=== PATIENT | male | born 1975 | race Caucasian/White ===

== ENCOUNTER 2016-11-19 22:40 | Observation (INO) ==
[2016-11-20] MEDS ORDERED: NICOTINE 21 MG/24 HR PATCH TRANSDERM PRN (01:08)
[2016-11-20] MEDS ORDERED: ACETAMINOPHEN 325 MG TABLET PO PRN (01:08)
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
[2016-11-20 01:27] LABS: Basophils # 0.1 10*3/uL (0.0-0.2); Basophils % 0.3 % (0.0-0.8); Eosinophils # 0.1 10*3/uL (0.0-0.87); Eosinophils % 0.3 % (0.00-10.9); Hematocrit 40.8 VOL% (42.0-52.0); Hemoglobin 14.2 GM/DL (14.0-18.0); Immature Granulocytes % 1.2 %; Immature Granulocytes Absolute 0.19 #; Lymphocytes # 2.3 10*3/uL (1.4-4.0); Lymphocytes % 14.5 % (21.2-54.2); Mean Corpuscular HGB Conc 34.8 GM/DL (32-36); Mean Corpuscular Hemoglobin 33 PG (27-34); Mean Platelet Volume 9.2 FL (9.6-12.0); Monocytes # 0.7 10*3/uL (0.11-0.8); Monocytes % 4.7 % (1.7-12.7); Neutrophils # 12.2 10*3/uL (1.4-7.4); Platelet Count 390 T/CUMM (130-400); Red Blood Count 4.25 MC/CUMM (3.8-5.5); Red Cell Distribution Width 16.4 % (9.3-17.3); White Blood Count 15.5 T/CUMM (4-12)
[2016-11-20 02:03] LABS: Calcium 8.5 MG/DL (8.5-10.1); Osmolality,Calculated 277.4 MOS/KG (273-304); Potassium 4.1 MMOL/L (3.5-5.1)
--- NOTE | 2016-11-20 06:10 | XRay Report ---
Exam: XR abdomen 1V Date: 11/20/2016 1:11 AM Indication: Abdominal pain Comparison: 05/04/2016 Technical: Supine image post contrast CT Findings: Contrast is present in the bladder as well as contrast in the collecting system of the kidneys. The ureters are faintly demonstrated on the right. Surgical clips present right lower quadrant. The lung bases are not included. The liver shadow is partially seen the spleen is obscured. Bony structures are intact. Impression: Prior surgical changes right lower quadrant 2. Mild constipation PROCEDURE INTERPRETED AT [facility] DEPARTMENT OF RADIOLOGY Final Report Signed by: Dr. Gerardo Gallardo
--- NOTE | 2016-11-20 06:42 | CT Report ---
Exam:CT chest wo con Date:11/20/2016 1:41 AM Indication: Chest pain Comparison: Routine chest radiograph 05/04/2016 Technical: Images were obtained from the thoracic inlet through the lung bases without intravenous contrast. Axial sagittal and coronal imaging was available for review. Dose reduction was performed with decreasing kv and mA and automated exposure Total DLP: 337.9 mGy*cm Findings: Study was initially reviewed by [facility]. The thyroid gland, trachea and esophagus are unremarkable. The anterior middle and posterior mediastinum are a few small nodes are present in the lateral aortic kalpana chain and carinal region without bulky adenopathy present. No supraclavicular are significant axillary nodes present. The heart and pulmonary artery are unremarkable. Aorta is unremarkable without contrast The lungs are clear without infiltrates or effusions. The bony structures are unremarkable. Impression: 1. No acute abnormality Exam: CT chest abdomen wo con Date: 11/20/2016 1:41 AM Comparison: None Indication: Abdominal pain Total DLP: As above mGy*cm Technical: Note is made contrast present in the kidneys from previous CT scan from outside institution no films or report are available. Images were obtained from the lung bases to the iliac crest without intravenous contrast with axial sagittal coronal imaging available for review. Dose reduction was performed with decreasing kv and mA and automated exposure Findings: Study was initially reviewed by [facility]. Liver and Spleen: Liver is unremarkable. There is small area of residual splenic tissue with prior splenectomy. There is a 4 cm area of tissue in the left upper abdomen Gallbladder and Pancreas: The gallbladder is not visualized suggesting prior cholecystectomy. No ductal dilatation. The pancreas is unremarkable. Adrenals: Unremarkable Kidneys: Contrast is present in the collecting system of the kidneys with excretion with no focal abnormalities. Ureters are nondilated or distended Stomach: Incomplete distended with air-fluid and debris Retroperitoneum: No enlarged lymph nodes. Aorta and IVC: No obvious aneurysm aorta vessels and IVC without contrast are otherwise unremarkable Bowel and Mesentery: Bowel in the upper abdomen is unremarkable. Surgical clips suggest prior appendectomy right lower quadrant Osseous structures: No suspicious appearing osseous abnormalities noted. Impression: 1. Previous appendectomy suspected. No acute intra-abdominal findings noted 2. Previous splenectomy with small residual splenic tissue present. The pelvis was not evaluated on today's study PROCEDURE INTERPRETED AT [facility] DEPARTMENT OF RADIOLOGY Final Report Signed by: Dr. Gerardo Gallardo
[2016-11-20 06:57] LABS: Basophils # 0.1 10*3/uL (0.0-0.2); Basophils % 0.5 % (0.0-0.8); Eosinophils # 0.1 10*3/uL (0.0-0.87); Eosinophils % 0.6 % (0.00-10.9); Hematocrit 41.3 VOL% (42.0-52.0); Hemoglobin 14.6 GM/DL (14.0-18.0); Immature Granulocytes % 0.8 %; Lymphocytes # 2.6 10*3/uL (1.4-4.0); Lymphocytes % 21.6 % (21.2-54.2); Mean Corpuscular HGB Conc 35.4 GM/DL (32-36); Mean Corpuscular Hemoglobin 34 PG (27-34); Mean Corpuscular Volume 95.4 FL (87-102); Mean Platelet Volume 9.2 FL (9.6-12.0); Monocytes # 0.7 10*3/uL (0.11-0.8); Monocytes % 5.5 % (1.7-12.7); Neutrophils # 8.6 10*3/uL (1.4-7.4); Platelet Count 392 T/CUMM (130-400); Red Blood Count 4.33 MC/CUMM (3.8-5.5); Red Cell Distribution Width 16.2 % (9.3-17.3); White Blood Count 12.1 T/CUMM (4-12)
[2016-11-20 07:36] LABS: Risk Ratio 2.01; VLDL CHOLESTEROL 9.2 MG/DL
[2016-11-20] MEDS ORDERED: RANITIDINE 75 MG PO SCH (09:00)
[2016-11-20] MEDS ORDERED: RANITIDINE 150 MG TABLET PO SCH (09:00)
[2016-11-20] MEDS: SUCRALFATE 1 GM TABLET PO SCH ×2 (09:59→16:31)
[2016-11-20] MEDS: LISINOPRIL 10 MG TABLET PO SCH (09:59)
[2016-11-20] MEDS: FAMOTIDINE 20 MG TABLET PO SCH ×2 (09:59→21:09)
[2016-11-20] MEDS: PANTOPRAZOLE 40 MG TABLET PO SCH (10:00)
[2016-11-20] MEDS: ONDANSETRON 4 MG/2 ML VIAL IV PRN ×3 (10:58→21:15)
[2016-11-20] MEDS: HYDROmorphone 2 MG/1 ML VIAL IV PRN ×3 (11:23→21:10)
[2016-11-20] MEDS: DEXTROSE 5% NACL 0.45% 1,000 ML IV SCH ×2 (11:23→19:45)
--- NOTE | 2016-11-20 11:35 | EKG Report ---
Stationary ECG Study [facility] Test Date: 11/20/2016 11:35:11 AM Pat Name: CECILIA MATA Department: Room: 543 Gender: M Dry Cleaner Helper: SARTHAK : 1975 Requested by: José Desir Order Number: [id number] Reading MD: LETY AGUERO Intervals [place] Rate: 71 P: 58 CA: 164 QRS: 89 QRSD: 98 T: 33 QT: 407 QTc: 430 Interpretive Statements SINUS RHYTHM Electronically Signed On 11-20-16 12:21:17 CDT by LETY AGUERO [email or web address]
[2016-11-20 11:50] LABS: Barbiturates Screen,Urine Negative (Negative); Benzodiazepines Screen,Urine Positive (Negative); Cannabinoid Screen,Urine Negative (Negative); Opiate Screen,Urine Positive (Negative); Phencyclidine Screen,Urine Negative (Negative)
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
[2016-11-20 15:07] LABS: Albumin 3.5 G/DL (3.4-5.0); Bilirubin,Direct 0.2 MG/DL (0.0-0.20); Bilirubin,Indirect 0.3 MG/DL (0.0-1.0); Bilirubin,Total 0.5 MG/DL (0.2-1.0); Total Protein 6.5 G/DL (6.4-8.3)
--- NOTE | 2016-11-20 15:25 | CT Report ---
Referring physician: Cherie Davis MD EXAM: CT abdomen and pelvis with and without contrast DATE: 11/20/2016 COMPARISON: 11/20/2016 REASON: Possible small bowel obstruction TECHNIQUE: Axial images of the abdomen and pelvis were obtained with and without the use of 100 cc of Omnipaque 350 IV contrast. Oral contrast was also administered. Coronal and sagittal reformatted images were also provided. Total DLP was 992.00 mGy*cm. FINDINGS: Minimal atelectasis at the visualized lung bases. The liver is normal in size with fatty infiltration. No masses or dilated ducts patient with prior cholecystectomy. Prior splenectomy with residual splenic tissue measuring 40 mm. The pancreas and adrenal glands are stable in appearance. Retained contrast in the urinary tract with multiple less than 5 mm bilateral renal calculi. Limited evaluation for ureteral calculus with residual contrast in the ureters and urinary bladder. Probable small phleboliths adjacent to the nondilated ureters. The abdominal aorta is normal in size with no adjacent adenopathy. No significant dilatation of the small bowel. The oral contrast reaches the cecum. No evidence of diverticulitis, appendicitis, free air, or free fluid. Small fat-containing midline ventral hernia and left periumbilical hernia. Asymmetric fluid and soft tissue density in the right inguinal canal involving a 30 mm area. The prostate measures 31 mm in diameter and indents the base of the urinary bladder. The urinary bladder is somewhat decompressed. No acute osseous findings are noted. IMPRESSION: Atelectasis at the lung bases. Fatty infiltration of the liver with prior cholecystectomy. Prior splenectomy with residual splenic tissue. Numerous bilateral renal calculi identified with no definite obstructing calculus. Limited evaluation of the urinary tract due to retained contrast from prior CT. Fat-containing midline ventral and left umbilical hernia. Asymmetric density in the right inguinal canal which may be related to undescended testicle. Scrotal ultrasound recommended for further evaluation. No evidence of definite small bowel obstruction with minimal oral contrast reaching the colon. Increased fecal material consistent with constipation. Follow-up x-ray may be helpful to document passage of the barium into the colon. Decompressed urinary bladder which makes it difficult to exclude minimal nonspecific bladder wall thickening. The CT exam was performed using one or more of the following dose reduction techniques: Automated exposure control and adjustment of the mA and/or kV according to patient size. PROCEDURE INTERPRETED AT [facility] DEPARTMENT OF RADIOLOGY Final Report Signed by: Dr. Pina Stephens
[2016-11-21] MEDS: DEXTROSE 5% NACL 0.45% 1,000 ML IV SCH ×3 (03:14→20:37)
[2016-11-21] MEDS: ONDANSETRON 4 MG/2 ML VIAL IV PRN (03:14)
[2016-11-21] MEDS: HYDROmorphone 2 MG/1 ML VIAL IV PRN ×4 (03:14→18:29)
[2016-11-21 07:33] LABS: Basophils % 0.5 % (0.0-0.8); Eosinophils # 0.1 10*3/uL (0.0-0.87); Eosinophils % 1.3 % (0.00-10.9); Hematocrit 39.7 VOL% (42.0-52.0); Hemoglobin 13.9 GM/DL (14.0-18.0); Immature Granulocytes % 0.4 %; Immature Granulocytes Absolute 0.03 #; Lymphocytes # 3.1 10*3/uL (1.4-4.0); Lymphocytes % 35.7 % (21.2-54.2); Mean Corpuscular Hemoglobin 34 PG (27-34); Mean Corpuscular Volume 96.6 FL (87-102); Mean Platelet Volume 10.1 FL (9.6-12.0); Monocytes # 0.7 10*3/uL (0.11-0.8); Monocytes % 7.9 % (1.7-12.7); Neutrophils # 4.6 10*3/uL (1.4-7.4); Neutrophils % 54.2 % (38.7-73.9); Platelet Count 387 T/CUMM (130-400); Red Blood Count 4.11 MC/CUMM (3.8-5.5); Red Cell Distribution Width 16.3 % (9.3-17.3); White Blood Count 8.6 T/CUMM (4-12)
[2016-11-21 07:43] LABS: Calcium 8.1 MG/DL (8.5-10.1); Osmolality,Calculated 274.5 MOS/KG (273-304)
[2016-11-21] MEDS: FAMOTIDINE 20 MG TABLET PO SCH ×2 (09:39→20:39)
[2016-11-21] MEDS: LISINOPRIL 10 MG TABLET PO SCH (09:40)
[2016-11-21] MEDS: SUCRALFATE 1 GM TABLET PO SCH ×2 (09:40→16:26)
[2016-11-21] MEDS: PANTOPRAZOLE 40 MG TABLET PO SCH (09:40)
--- NOTE | 2016-11-21 09:46 | General Surgery Progress Note ---
Assessment and Plan - Time spent with patient Time spent with patient: Less than 30 minutes (1) Abdominal pain Status: Acute Assessment and plan: Impression: Abdominal pain of unknown etiology. CT scans failed to reveal any evidence of obstruction. He does have a certain degree of chronic constipation on the scans at this time. He generally seems better and WBC is down today to 8000. At this point I do not see anything surgical at this time and will just continue to observe. Current Visit: No Qualifiers: Abdominal location: epigastric Qualified Code(s): R10.13 - Epigastric pain Subjective Patient reports: Present: no new complaints, feels better, tolerating liquids well, no bowel movement, afebrile, other Exam - Constitutional Vitals: Period Temp Pulse Resp BP Sys/Abel Pulse Ox Last 24 Hr 97.6 F-97.9 F 49-62 18-20 115-154/78-98 95-97 General appearance: mild distress - Head Head exam: Present: normal inspection - ENT ENT exam: Present: normal exam - Neck Neck exam: Present: normal inspection - Respiratory Respiratory exam: Present: clear to auscultation bilaterally - Cardiovascular Cardiovascular exam: Present: RRR - GI/Abdominal GI/Abdominal exam: Present: hypoactive bowel sounds, tenderness (Mild tenderness still), soft. Absent: guarding - Extremities Exam Extremities exam: Present: normal inspection - Back Exam Back exam: Present: normal inspection - Neurological Exam Neurological exam: Present: alert, oriented X3, CN II-XII intact - Skin Skin exam: Present: normal color, warm, dry Results - Labs CBC & BMP: 11/21/16 05:01 11/21/16 05:01 Lab Results: I have reviewed the past 24 hour labs - Diagnostic Findings Procedure: CT Abdomen and Pelvis: other (No sign of any obstructive process.) Quality Measures - Stroke Symptom Onset Unknown: No
[2016-11-21] MEDS ORDERED: MINERAL OIL ENEMA 133 ML BOTTLE RECTAL ONE (10:30)
[2016-11-21] MEDS: ALUMINUM/MAGNES/SIMETH MAX STR 30 ML UDCUP PO SCH ×3 (10:41→21:20)
--- NOTE | 2016-11-21 12:51 | Ultrasound Report ---
History: Undescended right testicle Date: 11/21/2016 Study: Scrotal ultrasound with duplex Comparison exam: No previous similar study for comparison Real-time ultrasound images are captured and archived. The right testicle measures 26 x 45 x 19 mm; the left testicle measures 28 x 41 x 18 mm. There is no intrinsic testicular mass. There is symmetric color Doppler flow to either testicle without evidence of torsion. The head of the right epididymis measures 9 mm; the left measures 8 mm. There are some scrotal varices on the left. There is minimal bilateral hydrocele. Impression: No evidence of testicular torsion. No intrinsic testicular mass. Both testicles are distended. There are some scrotal varices on the left PROCEDURE INTERPRETED AT [facility] DEPARTMENT OF RADIOLOGY Final Report Signed by: Dr. Anitra Miranda
[2016-11-21] MEDS ORDERED: PROMETHAZINE INJ 25 MG in SODIUM CHLORIDE 0.9% 50 ML IV ONE (13:30)
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
[2016-11-21] MEDS ORDERED: diphenhydrAMINE 50 MG/1 ML VIAL IV ONE (16:29)
[2016-11-21] MEDS ORDERED: THIAMINE INJ 100 MG, FOLIC ACID INJ 1 MG, MULTIVITAMIN INJ 10 ML in DEXTROSE 5% NACL 0.... IV SCH (16:30)
[2016-11-21] MEDS: chlordiazePOXIDE 25 MG CAPSULE PO SCH ×2 (17:26→20:39)
[2016-11-21] MEDS: NICOTINE 21 MG/24 HR PATCH TRANSDERM SCH (17:30)
--- NOTE | 2016-11-21 17:49 | Hospitalist Progress Note ---
Assessment and Plan - Time spent with patient Time spent with patient: Less than 30 minutes (1) EtOH dependence Status: Acute Assessment and plan: Ativan as needed for seizure protocol, Librium and clonidine for prophylaxis of withdrawal symptoms Current Visit: Yes (2) Abdominal pain Status: Acute Assessment and plan: GI following, appreciate their assistance, will check stool for occult blood, continue PPI therapy Current Visit: No Qualifiers: Abdominal location: epigastric Qualified Code(s): R10.13 - Epigastric pain (3) Nausea Status: Acute Assessment and plan: Patient states he had a couple episodes of nausea with minimal vomiting, Phenergan 25 mg IV 1 dose Current Visit: Yes Hospitalist: Subjective Interval history: Patient resting in bed on his side due to just receiving fleets enema. He states he continues to have some abdominal discomfort and states he had a loose bowel movement just before receiving the enema. CT of abdomen with contrast only showed some constipation. GI is following and has also ordered additional labs. Patient's drug screen was positive for opioids and benzos. Although he denies chronic opioid use this could be one possibility for his constipation. Testicular ultrasound shows both testicles in place with only mild distention and some scrotal varices on the left. Before completion of progress note nursing staff called and the patient admitted to more EtOH use than originally reported. Stating he drinks about a sixpack per night. Patient denies headache , chest pain, shortness of breath or pain/swelling in lower extremities. Exam - Constitutional Vitals: Period Temp Pulse Resp BP Sys/Abel Pulse Ox Last 24 Hr 97.5 F-98 F 49-79 18-20 115-160/78-102 94-97 General appearance: normal weight, mild distress - Respiratory Respiratory exam: Present: clear to auscultation bilaterally - Cardiovascular Cardiovascular exam: Present: regular rate and rhythm - GI/Abdominal GI/Abdominal exam: Present: normal bowel sounds, tenderness - Neurological Exam Neurological exam: Present: alert, oriented X3 - Psychiatric Psychiatric exam: Present: normal affect, normal mood Results - Labs CBC & BMP: 11/21/16 05:01 11/21/16 05:01 Lab Results: I have reviewed the past 24 hour labs Quality Measures - Stroke Symptom Onset Unknown: No
[2016-11-21] MEDS: LORazepam 2 MG/1 ML VIAL IV SCH (18:45)
[2016-11-22] MEDS: HYDROmorphone 2 MG/1 ML VIAL IV PRN (01:11)
[2016-11-22] MEDS: LORazepam 2 MG/1 ML VIAL IV SCH ×3 (01:11→12:11)
[2016-11-22] MEDS: ALUMINUM/MAGNES/SIMETH MAX STR 30 ML UDCUP PO SCH ×2 (05:24→10:07)
[2016-11-22] MEDS: SUCRALFATE 1 GM TABLET PO SCH (07:08)
[2016-11-22] MEDS: chlordiazePOXIDE 25 MG CAPSULE PO SCH ×2 (09:08→15:26)
[2016-11-22] MEDS: LISINOPRIL 10 MG TABLET PO SCH (09:09)
[2016-11-22] MEDS: FAMOTIDINE 20 MG TABLET PO SCH (09:09)
[2016-11-22] MEDS: PANTOPRAZOLE 40 MG TABLET PO SCH (09:09)
[2016-11-22] MEDS: NICOTINE 21 MG/24 HR PATCH TRANSDERM SCH (09:10)
--- NOTE | 2016-11-22 10:04 | General Surgery Progress Note ---
Assessment and Plan - Time spent with patient Time spent with patient: Less than 30 minutes (1) Abdominal pain Status: Acute Assessment and plan: Impression: Abdominal pain of unknown etiology. CT scans failed to reveal any evidence of obstruction. He does have a certain degree of chronic constipation on the scans at this time. He generally seems better and WBC is down today to 8000. At this point I do not see anything surgical at this time and will just continue to observe. 11/22/2016 Patient is difficult to read and get a good feel for what is happening with him. His tray is cleaned out with the liquids that he has been taking. He states he had a bowel movement yesterday but none so far this morning. Abdomen is unchanged is soft and bowel sounds are hypoactive at this point. He still always seems to be a little tender around his old incision site but I just really cannot see that there is a big push for any surgery on this area. We will try to advance his diet and continue observation at this time and see basically what he is going to do. Before considering any surgery on left eye little more time to see what his symptoms basically do over time. He clearly has no obstructive process going on at this time. Current Visit: No Qualifiers: Abdominal location: epigastric Qualified Code(s): R10.13 - Epigastric pain Subjective Patient reports: Present: no new complaints, pain is less, tolerating liquids well, no bowel movement (This morning), afebrile Exam - Constitutional Vitals: Period Temp Pulse Resp BP Sys/Abel Pulse Ox Last 24 Hr 97.5 F-99.5 F 48-79 18-20 113-160/63-102 92-96 General appearance: mild distress - Head Head exam: Present: normal inspection - ENT ENT exam: Present: normal exam - Neck Neck exam: Present: normal inspection - Respiratory Respiratory exam: Present: clear to auscultation bilaterally, rales - Cardiovascular Cardiovascular exam: Present: RRR - GI/Abdominal GI/Abdominal exam: Present: hypoactive bowel sounds, tenderness (Continues to seem to have a little discomfort along the incisional line but otherwise unremarkable), soft - Extremities Exam Extremities exam: Present: normal inspection - Neurological Exam Neurological exam: Present: alert, oriented X3, CN II-XII intact - Skin Skin exam: Present: normal color, warm, dry Results - Labs CBC & BMP: 11/21/16 05:01 11/21/16 05:01 Lab Results: I have reviewed the past 24 hour labs Quality Measures - Stroke Symptom Onset Unknown: No
--- NOTE | 2016-11-22 10:58 | Discharge Summary ---
<Mila Desai - Last Filed: 11/22/16 11:34> Hospital Course - Hospital Course Hospital Course: 41 yo male with a history aortic repair in the remote past presents with abdominal pain. Dr. Campbell and Dr. Miranda consulted. Patient in denial about his alcohol use. Labs were obtained: WBC 15.5; AST 124; ALT 149; Urine drug screen Postive for opiates and benzodiazepines; other lab results were within normal lab values; Abdominal xray: showed Mild Constipation and prior surgical changes right lower quadrant.; Chest/Abdomen CT: constipation with previous splenectomy with reducible left umbilical hernia. Scrotal US negative. No etiology for abdominal pain, drug seeking. Discharge home to follow up with Dr. Campbell in one week. Needs rehab for alcoholism. - Time spent with patient Time with patient DS: Less than 30 minutes Diagnosis - Discharge Diagnosis (1) Constipation Status: Acute (2) Abdominal pain Status: Acute Specialty Discharge - Follow Up or Referrals Follow up with: José Campbell MD [Physician] - 1 Week Discharge Plan - Discharge Data Disposition: Disch To Home/Self Care - Discharge Medications New Folic Acid Tab 1 mg PO DAILY #30 tablet Thiamine Tab [Vitamin B1 Tab] 100 mg PO DAILY #30 tablet Continue HYDROcodone/ACETAMIN 7.5-325 [[place] 7.5-325] 1 tablet PO Q4H PRN #30 tablet PRN Reason: Pain Moderate (4-7) Lisinopril 10 mg PO DAILY #30 tablet - Follow Up or Referral Follow Up: José Campbell MD [Physician] - 1 Week - Forms/Instructions Exam - Constitutional Vitals: Period Temp Pulse Resp BP Sys/Abel Pulse Ox Last 24 Hr 97.5 F-99.5 F 48-79 18-20 113-160/63-102 92-96 Discharge Results Procedures and tests throughout hospitalization: Pending Orders 11/21/16 13:45 Occult Blood, Stool Routine 11/23/16 04:00 Basic Metabolic Panel w/Mg IN AM Comp Blood Count Auto Diff IN AM DS: Provider Date of admission: 11/20/16 00:15 Primary care physician: . No PCP Attending physician on admission: Yinka Pineda MD Consults: 11/20/16 01:35 Consult to Physician [CONS] Routine Comment: abdominal pain, poss hernia, pt known to you Consulting Provider: José Campbell Person Notified: REHANGER ISMAEL BOTELLO Date Notified: 11/20/16 Time Notified: 09:04 Consult Notification Comment: TALK TO HANNA @ DR. YANG OFFICE SHE STATED DR. CAMPBELL WILL SEE THIS PATIENT 11/20/16 01:36 Consult to Physician [CONS] Routine Comment: abdominal pain Consulting Provider: Gerardo Miranda Person Notified: RHIANNON Date Notified: 11/20/16 Time Notified: 10:00 Discharging clinician: Mila Desai NP <Re Lord - Last Filed: 11/22/16 13:06> Hospital Course - Time spent with patient Time with patient DS: Less than 30 minutes (25 min) Discharge Plan - Discharge Data Condition at Discharge: Stable Discharge Diet: other (soft diet) Activity: resume usual activities as tolerated Hygiene: no restrictions Weight Bearing at Discharge: full weight bearing Driving: not until seen by doctor - Forms/Instructions Additional Discharge Instructions: referral to [place] for help with alcohol and drug abuse Exam - Constitutional General appearance: normal weight, no acute distress - Respiratory Respiratory exam: Present: clear to auscultation bilaterally. Absent: rhonchi, wheezes - Cardiovascular Cardiovascular exam: Present: regular rate and rhythm. Absent: systolic murmur - GI/Abdominal GI/Abdominal exam: Present: normal bowel sounds, soft. Absent: tenderness - Extremities Exam Extremities exam: Present: normal inspection, normal capillary refill
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
[2016-11-22 12:32] VITALS: BP 132/58
[2016-11-22] MEDS: DEXTROSE 5% NACL 0.45% 1,000 ML IV SCH (15:25)
[2016-11-22] MEDS ORDERED: DOCUSATE SODIUM 100 MG CAPSULE PO SCH (21:00)
== END 2016-11-22 14:23 | disposition home or self-care (01) ==
LOC: SUATTDRO 11-20 00:15 → N.5E 11-20 00:15 → INTOOBSV 11-20 00:15
PROVIDERS: ADMIT Family Medicine; ATTEND Internal Medicine

== ENCOUNTER 2017-03-12 11:55 | Observation (INO) ==
[2017-03-12] MEDS ORDERED: ASPIRIN 325 MG TABLET PO STA (13:46)
[2017-03-12] MEDS ORDERED: ALUM/MAG/SIMETH/LIDO VISC 1:1 30 ML BOTTLE PO STA (13:46)
[2017-03-12 13:58] LABS: Basophils # 0.1 10*3/uL (0.0-0.2); Basophils % 0.7 % (0.0-0.8); Eosinophils # 0.2 10*3/uL (0.0-0.87); Eosinophils % 1.6 % (0.00-10.9); Hematocrit 47.6 VOL% (42.0-52.0); Hemoglobin 16.9 GM/DL (14.0-18.0); Immature Granulocytes % 0.8 %; Immature Granulocytes Absolute 0.09 #; Lymphocytes # 3.5 10*3/uL (1.4-4.0); Lymphocytes % 29.3 % (21.2-54.2); Mean Corpuscular HGB Conc 35.5 GM/DL (32-36); Mean Corpuscular Hemoglobin 34 PG (27-34); Mean Corpuscular Volume 94.8 FL (87-102); Mean Platelet Volume 9.7 FL (9.6-12.0); Monocytes # 0.9 10*3/uL (0.11-0.8); Monocytes % 7.5 % (1.7-12.7); Neutrophils # 7.2 10*3/uL (1.4-7.4); Neutrophils % 60.1 % (38.7-73.9); Platelet Count 405 T/CUMM (130-400); Red Blood Count 5.02 MC/CUMM (3.8-5.5); Red Cell Distribution Width 14.2 % (9.3-17.3)
[2017-03-12] MEDS ORDERED: ALUM/MAG/SIMETH/LIDO VISC 1:1 30 ML BOTTLE PO ONE (14:08)
[2017-03-12] MEDS ORDERED: ASPIRIN 325 MG TABLET ONE (14:08)
[2017-03-12 14:28] LABS: Alanine Aminotransferase 51 U/L (16-61); Albumin 4.2 G/DL (3.4-5.0); Alkaline Phosphatase 77 U/L (45-117); Aspartate Amino Transferase 25 U/L (0-37); Bilirubin,Total < 0.39 MG/DL (0.2-1.0); Blood Urea Nitrogen 9 MG/DL (7-18); Calcium 9.3 MG/DL (8.5-10.1); Glucose 92 MG/DL (74-106); Magnesium 2.2 MG/DL (1.8-2.4); Osmolality,Calculated 279.3 MOS/KG (273-304); Potassium 4.6 MMOL/L (3.5-5.1); Sodium 141 MMOL/L (136-145); Total Protein 7.9 G/DL (6.4-8.3)
[2017-03-12 16:57] LABS: Apearance,Urine CLEAR (Clear); Bilirubin,Urine Negative (Negative); Blood, Urine Negative (Negative); Glucose,Urine (UA) Negative (Negative); Ketones,Urine Negative (Negative); Nitrite,Urine Negative (Negative); Protein,Urine Negative; RBC,Urine 1 /HPF (0-4); Urine Color Straw (Yellow); Urine Specific Gravity 1.059 (1.001-1.035); Urine Urobilinogen < 2.0 EU/DL (0.2-1.0); WBC,Urine <1 /HPF (0-6)
[2017-03-12 17:06] LABS: Barbiturates Screen,Urine Negative (Negative); Benzodiazepines Screen,Urine Negative (Negative); Cannabinoid Screen,Urine Positive (Negative); Opiate Screen,Urine Negative (Negative); Phencyclidine Screen,Urine Negative (Negative)
[2017-03-12] MEDS ORDERED: ACETAMINOPHEN 325 MG TABLET PO PRN (17:20)
[2017-03-12] MEDS ORDERED: ONDANSETRON 4 MG/2 ML VIAL IV PRN (17:20)
[2017-03-12] MEDS ORDERED: ENOXAPARIN 40 MG/0.4 ML SYRINGE SUBCUT SCH (17:30)
[2017-03-12] MEDS: SODIUM CHLORIDE 0.9% 1,000 ML IV SCH (17:45)
[2017-03-12] MEDS ORDERED: CLORAZEPATE 3.75 MG TABLET PO PRN (20:48)
[2017-03-12] MEDS ORDERED: PANTOPRAZOLE 40 MG VIAL IV ONE (22:20)
[2017-03-12] MEDS: diphenhydrAMINE 50 MG/1 ML VIAL IV PRN (22:34)
[2017-03-13 04:44] LABS: Basophils # 0.1 10*3/uL (0.0-0.2); Eosinophils # 0.3 10*3/uL (0.0-0.87); Eosinophils % 3.9 % (0.00-10.9); Hematocrit 41.3 VOL% (42.0-52.0); Hemoglobin 14.6 GM/DL (14.0-18.0); Immature Granulocytes % 0.7 %; Immature Granulocytes Absolute 0.06 #; Lymphocytes # 3.5 10*3/uL (1.4-4.0); Lymphocytes % 40.7 % (21.2-54.2); Mean Corpuscular HGB Conc 35.4 GM/DL (32-36); Mean Corpuscular Hemoglobin 33 PG (27-34); Mean Corpuscular Volume 94.5 FL (87-102); Mean Platelet Volume 10.1 FL (9.6-12.0); Monocytes # 0.6 10*3/uL (0.11-0.8); Monocytes % 7.3 % (1.7-12.7); Neutrophils % 46.4 % (38.7-73.9); Platelet Count 372 T/CUMM (130-400); Red Blood Count 4.37 MC/CUMM (3.8-5.5); Red Cell Distribution Width 14.3 % (9.3-17.3); White Blood Count 8.6 T/CUMM (4-12)
[2017-03-13 05:24] LABS: Albumin 3.2 G/DL (3.4-5.0); Bilirubin,Total 0.5 MG/DL (0.2-1.0); Calcium 8.7 MG/DL (8.5-10.1); Magnesium 2.2 MG/DL (1.8-2.4); Osmolality,Calculated 281.1 MOS/KG (273-304); Potassium 4.1 MMOL/L (3.5-5.1); Risk Ratio 3.41; Total Protein 6.2 G/DL (6.4-8.3)
[2017-03-13] MEDS: SODIUM CHLORIDE 0.9% 1,000 ML IV SCH ×2 (05:27→06:21)
[2017-03-13 08:17] VITALS: BP 113/83
[2017-03-13] MEDS ORDERED: PANTOPRAZOLE 40 MG TABLET PO SCH (09:00)
[2017-03-13] MEDS: diphenhydrAMINE 50 MG/1 ML VIAL IV PRN (09:38)
[2017-03-13] MEDS ORDERED: INFLUENZA VIRUS VACCINE 0.5 ML SYRINGE IM ONE (10:53)
== END 2017-03-13 11:04 | disposition home or self-care (01) ==
LOC: N.ED 11:55 → N.EDINP 15:53 → INTOOBSV 15:53 → SUATTDRO 15:53 → N.EDINP 17:04 → N.TELEN 17:14
PROVIDERS: ADMIT Hospitalist; ATTEND Internal Medicine

== ENCOUNTER 2018-05-30 19:35 | Inpatient (IN) ==
[2018-05-30] MEDS ORDERED: LACTATED RINGERS 500 ML IV STA (19:58)
[2018-05-30] MEDS ORDERED: fentaNYL 100 MCG/2 ML VIAL IV STA ×2 (19:58→21:22)
[2018-05-30] MEDS ORDERED: ONDANSETRON 4 MG/2 ML VIAL IV STA ×2 (19:58→21:23)
[2018-05-30] MEDS ORDERED: ONDANSETRON 4 MG/2 ML VIAL ONE (20:01)
[2018-05-30] MEDS ORDERED: fentaNYL 100 MCG/2 ML VIAL ONE (20:01)
[2018-05-30 20:29] LABS: Basophils # 0.1 10*3/uL (0.0-0.2); Basophils % 0.3 % (0.0-0.8); Eosinophils # 0.1 10*3/uL (0.0-0.87); Eosinophils % 0.2 % (0.00-10.9); Hematocrit 42.3 VOL% (42.0-52.0); Hemoglobin 14.5 GM/DL (14.0-18.0); Immature Granulocytes % 0.7 %; Immature Granulocytes Absolute 0.19 #; Lymphocytes # 3.4 10*3/uL (1.4-4.0); Lymphocytes % 11.7 % (21.2-54.2); Mean Corpuscular HGB Conc 34.3 GM/DL (32-36); Mean Corpuscular Hemoglobin 33 PG (27-34); Mean Corpuscular Volume 95.1 FL (87-102); Mean Platelet Volume 9.5 FL (9.6-12.0); Monocytes # 1.8 10*3/uL (0.11-0.8); Monocytes % 6.1 % (1.7-12.7); Neutrophils # 23.5 10*3/uL (1.4-7.4); Platelet Count 358 T/CUMM (130-400); Red Blood Count 4.45 MC/CUMM (3.8-5.5); Red Cell Distribution Width 14.4 % (9.3-17.3); White Blood Count 29.1 T/CUMM (4-12)
[2018-05-30 20:37] LABS: INR 0.9; PT Patient Result 10.2 SECS; Partial Thromboplastin Time 21.9 SECS (0-40)
[2018-05-30 20:51] LABS: Alanine Aminotransferase 75 U/L (16-61); Albumin 3.8 G/DL (3.4-5.0); Alkaline Phosphatase 68 U/L (45-117); Amylase 65 U/L (25-115); Aspartate Amino Transferase 55 U/L (0-37); Blood Urea Nitrogen 12 MG/DL (7-18); CKMB % 1.6 %; Calcium 8.9 MG/DL (8.5-10.1); Glucose 110 MG/DL (74-106); Osmolality,Calculated 279.4 MOS/KG (273-304); Potassium 3.6 MMOL/L (3.5-5.1); Sodium 140 MMOL/L (136-145); Total Protein 7.6 G/DL (6.4-8.3); Troponin I < 0.015 NG/ML (0.00-0.045)
[2018-05-30 20:59] LABS: Lymphocytes 14 % (20-55); Platelet Estimate Normal; Segmented Neutrophils 82 % (50-85)
[2018-05-30 21:00] LABS: Total Cells Counted 100
[2018-05-30 21:01] LABS: Polychromasia Few
[2018-05-30 21:03] LABS: Hypochromasia Slight
[2018-05-30 21:06] LABS: Macrocytosis 1+
[2018-05-30 22:29] LABS: Apearance,Urine CLEAR (Clear); Bacteria,Urine Occasional /HPF (Few); Bilirubin,Urine Negative (Negative); Blood, Urine Large mg/dL (Negative); Glucose,Urine (UA) Negative (Negative); Ketones,Urine Negative (Negative); Mucus,Urine Occasional /LPF (Occasional); Nitrite,Urine Negative (Negative); Protein,Urine 30 MG/DL; RBC,Urine 118 /HPF (0-4); Squamous Epithelial Cell,Urine Occasional /HPF (0-10); Urine Color Yellow (Yellow); Urine Urobilinogen < 2.0 EU/DL (0.2-1.0); WBC,Urine 4 /HPF (0-6)
[2018-05-30 22:33] LABS: Barbiturates Screen,Urine Negative (Negative); Benzodiazepines Screen,Urine Negative (Negative); Cannabinoid Screen,Urine Positive (Negative); Opiate Screen,Urine Positive (Negative); Phencyclidine Screen,Urine Negative (Negative)
[2018-05-30] MEDS ORDERED: ACETAMINOPHEN 325 MG TABLET PO PRN (23:34)
[2018-05-31] MEDS: MORPHINE 4 MG/1 ML VIAL IV PRN ×2 (01:07→06:18)
[2018-05-31] MEDS: LACTATED RINGERS 1,000 ML IV SCH ×2 (01:10→09:11)
[2018-05-31] MEDS ORDERED: PNEUMOCOCCAL VACCINE (13 VALENT) 0.5 ML SYRINGE IM ONE (01:17)
[2018-05-31] MEDS ORDERED: INFLUENZA VIRUS VACCINE 0.5 ML SYRINGE IM ONE (01:17)
[2018-05-31] MEDS: ONDANSETRON 4 MG/2 ML VIAL IV PRN ×2 (01:58→09:45)
[2018-05-31 05:50] LABS: Basophils % 0.2 % (0.0-0.8); Hematocrit 39.2 VOL% (42.0-52.0); Hemoglobin 13.1 GM/DL (14.0-18.0); Immature Granulocytes % 0.4 %; Immature Granulocytes Absolute 0.06 #; Lymphocytes # 2.5 10*3/uL (1.4-4.0); Lymphocytes % 15.2 % (21.2-54.2); Mean Corpuscular HGB Conc 33.4 GM/DL (32-36); Mean Corpuscular Hemoglobin 31 PG (27-34); Mean Corpuscular Volume 93.8 FL (87-102); Mean Platelet Volume 9.7 FL (9.6-12.0); Monocytes # 1.4 10*3/uL (0.11-0.8); Monocytes % 8.3 % (1.7-12.7); Neutrophils # 12.4 10*3/uL (1.4-7.4); Neutrophils % 75.9 % (38.7-73.9); Platelet Count 342 T/CUMM (130-400); Red Blood Count 4.18 MC/CUMM (3.8-5.5); Red Cell Distribution Width 14.6 % (9.3-17.3); White Blood Count 16.4 T/CUMM (4-12)
[2018-05-31 06:14] LABS: Albumin 3.4 G/DL (3.4-5.0); Bilirubin,Total 2.2 MG/DL (0.2-1.0); Calcium 8.4 MG/DL (8.5-10.1); Osmolality,Calculated 276.5 MOS/KG (273-304); Potassium 3.7 MMOL/L (3.5-5.1); Total Protein 6.9 G/DL (6.4-8.3)
[2018-05-31] MEDS ORDERED: HYDROmorphone 2 MG/1 ML VIAL IV PRN (07:16)
[2018-05-31] MEDS: PANTOPRAZOLE 40 MG TABLET PO SCH (08:07)
[2018-05-31] MEDS ORDERED: NALOXONE 0.4 MG/ML VIAL ONE (09:13)
[2018-05-31 09:32] LABS: Hematocrit 38.9 VOL% (42.0-52.0); Hemoglobin 13.5 GM/DL (14.0-18.0)
[2018-05-31] MEDS ORDERED: amLODIPine 5 MG TABLET PO SCH (14:30)
[2018-06-01] MEDS: MORPHINE 4 MG/1 ML VIAL IV PRN ×3 (02:01→23:18)
[2018-06-01 04:45] LABS: Basophils % 0.3 % (0.0-0.8); Eosinophils # 0.1 10*3/uL (0.0-0.87); Eosinophils % 0.7 % (0.00-10.9); Hematocrit 39.3 VOL% (42.0-52.0); Hemoglobin 13.1 GM/DL (14.0-18.0); Immature Granulocytes % 0.3 %; Immature Granulocytes Absolute 0.04 #; Lymphocytes # 2.3 10*3/uL (1.4-4.0); Lymphocytes % 16.5 % (21.2-54.2); Mean Corpuscular HGB Conc 33.3 GM/DL (32-36); Mean Corpuscular Hemoglobin 32 PG (27-34); Mean Corpuscular Volume 94.7 FL (87-102); Mean Platelet Volume 9.9 FL (9.6-12.0); Monocytes # 1.3 10*3/uL (0.11-0.8); Monocytes % 9.1 % (1.7-12.7); Neutrophils # 10.3 10*3/uL (1.4-7.4); Neutrophils % 73.1 % (38.7-73.9); Platelet Count 325 T/CUMM (130-400); Red Blood Count 4.15 MC/CUMM (3.8-5.5); Red Cell Distribution Width 14.6 % (9.3-17.3)
[2018-06-01 05:15] LABS: Albumin 3.2 G/DL (3.4-5.0); Bilirubin,Total 2.1 MG/DL (0.2-1.0); Calcium 8.5 MG/DL (8.5-10.1); Potassium 3.4 MMOL/L (3.5-5.1); Total Protein 6.8 G/DL (6.4-8.3)
[2018-06-01] MEDS: PANTOPRAZOLE 40 MG TABLET PO SCH (08:56)
[2018-06-01] MEDS ORDERED: ALUM/MAG/SIMETH/LIDO VISC 1:1 30 ML BOTTLE PO ONE (10:50)
[2018-06-01] MEDS: amLODIPine 5 MG TABLET PO SCH (11:00)
[2018-06-01] MEDS: SIMETHICONE CHEW 125 MG TABLET PO PRN (19:32)
[2018-06-02 05:13] LABS: Basophils % 0.3 % (0.0-0.8); Eosinophils # 0.1 10*3/uL (0.0-0.87); Eosinophils % 0.9 % (0.00-10.9); Hemoglobin 13.2 GM/DL (14.0-18.0); Immature Granulocytes % 0.6 %; Immature Granulocytes Absolute 0.06 #; Lymphocytes # 2.7 10*3/uL (1.4-4.0); Lymphocytes % 24.7 % (21.2-54.2); Mean Corpuscular HGB Conc 33.8 GM/DL (32-36); Mean Corpuscular Hemoglobin 32 PG (27-34); Mean Corpuscular Volume 93.5 FL (87-102); Mean Platelet Volume 9.9 FL (9.6-12.0); Monocytes % 9.4 % (1.7-12.7); Neutrophils % 64.1 % (38.7-73.9); Platelet Count 311 T/CUMM (130-400); Red Blood Count 4.17 MC/CUMM (3.8-5.5); Red Cell Distribution Width 14.1 % (9.3-17.3); White Blood Count 10.8 T/CUMM (4-12)
[2018-06-02 05:59] LABS: Bilirubin,Total 0.9 MG/DL (0.2-1.0); Calcium 8.4 MG/DL (8.5-10.1); Osmolality,Calculated 269.1 MOS/KG (273-304); Potassium 3.2 MMOL/L (3.5-5.1)
[2018-06-02] MEDS: amLODIPine 5 MG TABLET PO SCH (08:09)
[2018-06-02] MEDS: PANTOPRAZOLE 40 MG TABLET PO SCH (08:10)
[2018-06-02] MEDS: MORPHINE 4 MG/1 ML VIAL IV PRN ×3 (09:55→18:07)
[2018-06-02] MEDS: SIMETHICONE CHEW 125 MG TABLET PO PRN ×3 (09:56→18:06)
[2018-06-02] MEDS: ONDANSETRON 4 MG/2 ML VIAL IV PRN (22:34)
[2018-06-03] MEDS: MORPHINE 4 MG/1 ML VIAL IV PRN (04:32)
[2018-06-03] MEDS: SIMETHICONE CHEW 125 MG TABLET PO PRN (09:29)
[2018-06-03] MEDS: PANTOPRAZOLE 40 MG TABLET PO SCH (09:29)
[2018-06-03] MEDS: amLODIPine 5 MG TABLET PO SCH (09:30)
[2018-06-03 11:54] LABS: Apearance,Urine CLEAR (Clear); Bilirubin,Urine Negative (Negative); Blood, Urine Moderate mg/dL (Negative); Glucose,Urine (UA) Negative (Negative); Ketones,Urine 5 mg/dL (Negative); Nitrite,Urine Negative (Negative); Protein,Urine Negative; RBC,Urine 28 /HPF (0-4); Urine Color Amber (Yellow); Urine Specific Gravity 1.016 (1.001-1.035); WBC,Urine 1 /HPF (0-6)
[2018-06-03 15:37] VITALS: BP 110/82
== END 2018-06-03 16:20 | disposition home or self-care (01) | DRG 347 ==
LOC: EDUNIT# → EDBD → N.ED 19:35 → N.EDINP 23:34 → N.ICU 23:55 → N.5E 06-02 02:56
PROVIDERS: ADMIT Surgery; ATTEND Surgery